=== PATIENT | female | born 1955 | race Caucasian/White ===

== ENCOUNTER → 2019-11-27 09:23 | Outpatient (CLI) | payer OTHER, SELFPAY ==
--- NOTE | ~2019-11-27 | DEXA_ITS ---
Bone Density Report Name: Lelo Hdez Age: 64 Sex: Female Ethnicity: White Date of : 1955 Indication: postmenopausal; screening for osteoporosis; height loss; Referring Provider: LIBORIO LINDSAY Study: Bone densitometry was performed. Exam Date: November 27, 2019 Accession number: [id number] Bone Density: Region BMD T-score Z-score Classification AP Spine (L1-L4) 1.048 0.0 1.9 Normal Femoral Neck (Left) 0.697 -1.4 0.2 Osteopenia Total Hip (Left) 0.850 -0.8 0.5 Normal Femoral Neck (Right) 0.731 -1.1 0.5 Osteopenia Total Hip (Right) 0.943 0.0 1.3 Normal Total Hip Mean 0.897 -0.4 0.9 Normal World Health Organization criteria for BMD impression classify patients as: Normal (T-score at or above -1.0), Osteopenia (T-score between -1.0 and -2.5), or Osteoporosis (T-score at or below -2.5). 10-year Fracture Risk(1): Major Osteoporotic Fracture 8.6% Hip Fracture 0.8% Reported Risk Factors: [place] (), Neck BMD=0.697, BMI=28.3 (1) FRAX(R) Version 3.08. Fracture probability calculated for an untreated patient. Fracture probability may be lower if the patient has received treatment. Previous Exams: Region Exam Age BMD T-score BMD Change BMD Change Date g/cm2 vs Baseline vs Previous AP Spine(L1-L4) 11/27/2019 64 1.048 0.0 -0.046* 0.019 08/17/2016 60 1.029 -0.2 -0.065* -0.027* 05/30/2013 57 1.056 0.1 -0.038* -0.038* 12/27/2008 53 1.094 0.4 Total Hip(Left) 11/27/2019 64 0.850 -0.8 -0.077* -0.015 08/17/2016 60 0.865 -0.6 -0.063* 0.014 05/30/2013 57 0.851 -0.7 -0.076* -0.076* 12/27/2008 53 0.927 -0.1 Total Hip(Right) 11/27/2019 64 0.943 0.0 -0.039* -0.018 08/17/2016 60 0.961 0.2 -0.022 0.080* 05/30/2013 57 0.880 -0.5 -0.102* -0.102* 12/27/2008 53 0.982 0.3 *Denotes significance at 95% confidence level, LSC for AP Spine = 0.022 g/cm2, LSC for Total Hip = 0.027 g/cm2 Clinical Information Provided by Patient: Has used the following medications: Vitamin D, Calcium Patient maximum height was 63 Menopause Age: 53 No regular weight bearing exercise Drinks caffeinated beverages Onset of menses at age 9 Number of children 1 Impression: The patient has low bone mass, based on the Left Femoral Neck T-scor
== END ==
PROVIDERS: Visit Provider Obstetrics & Gynecology Gynecology
DX: M85.89 Other specified disorders of bone density and structure, multiple sites (principal); Z78.0 Asymptomatic menopausal state
CPT/HCPCS: 77080

== ENCOUNTER → 2020-08-04 13:34 | Outpatient (CLI) | payer OTHER, SELFPAY ==
--- NOTE | ~2020-08-04 | MM_ITS ---
EXAMINATION: MM screening sulaiman BI w jaylyn HISTORY: Screening TECHNIQUE: Craniocaudal and mediolateral oblique 3-D tomosynthesis images were obtained and synthetic 2-D images were generated. CAD analysis was submitted and interpreted. COMPARISON: Comparison to multiple prior studies sequentially, with oldest reviewed study dated 05/31. BREAST PARENCHYMAL COMPOSITION: There are scattered areas of fibroglandular density. FINDINGS: There is no evidence of suspicious mass, calcification, or architectural distortion to sugg est malignancy in either breast. There has been no suspicious interval change. IMPRESSION: 1. No mammographic evidence of malignancy. 2. Recommend routine screening mammography in one year. BI-RADS Category 1: Negative Reviewed, dictated and finalized at location A. ILS WASHER
== END ==
PROVIDERS: PCP Nurse Practitioner Psychiatric/Mental Health; Visit Provider Nurse Practitioner
DX: Z12.31 Encounter for screening mammogram for malignant neoplasm of breast (principal)
CPT/HCPCS: 77063; 77067

== ENCOUNTER → 2020-10-28 09:05 | Outpatient (CLI) | payer OTHER, SELFPAY ==
--- NOTE | ~2020-10-28 | US_ITS ---
EXAMINATION: US pelvic complete w TV DATE: 10/28/2020 09:53 INDICATION: Right adnexal mass TECHNIQUE: Multiple transabdominal and endovaginal sonographic images of the pelvis were obtained. COMPARISON: None. FINDINGS: The uterus measures 8.4 x 5.8 x 6.4 cm. The visual is portions of the endometrial complex at the low er uterine segment measures 5 mm in thickness. The more cephalad endometrial complex is obscured by a 4.6 cm hyperechoic and shadowing mass at the fundus most likely representing a uterine fibroid. Ther e are a couple additional smaller regions with more dense shadowing coarse calcifications measuring 2 .4 cm and 1.4 cm in maximal diameters likely representing degenerated uterine fibroids. 4.1 cm simple appearing anechoic cystic lesion at the right adnexa. No definitive right ovarian tissue identified. The left ovary is not visualized. There is no free fluid in the pelvis. IMPRESSION: 1. 4.6 cm uterine mass most likely representing a fibroid with couple smaller calcified likely degene rated uterine fibroids. 2. Simple appearing 4.1 cm right adnexal cyst. Bilateral ovaries are not visualized. Reviewed, dictated and finalized at location B. [employer] IMPRESSION: 1. 4.6 cm uterine mass most likely representing a fibroid with couple smaller c alcified likely degenerated uterine fibroids. 2. Simple appearing 4.1 cm right adnexal cyst. Bilateral ovaries are not visual ized.
== END ==
PROVIDERS: PCP Nurse Practitioner Psychiatric/Mental Health; Visit Provider Nurse Practitioner
DX: R19.09 Other intra-abdominal and pelvic swelling, mass and lump (principal); N85.9 Noninflammatory disorder of uterus, unspecified; D25.9 Leiomyoma of uterus, unspecified
CPT/HCPCS: 76830; 76856

== ENCOUNTER → 2020-11-08 00:40 | Outpatient (CLI) | payer OTHER, SELFPAY ==
[2020-11-09 00:21] LABS: SARS-CoV-2 RNA PCR Negative
== END ==
PROVIDERS: PCP Nurse Practitioner Psychiatric/Mental Health; Visit Provider Internal Medicine Gastroenterology
DX: Z01.812 Encounter for preprocedural laboratory examination (principal); Z20.822 Contact with and (suspected) exposure to COVID-19
CPT/HCPCS: C9803; U0003; U0005

== ENCOUNTER 2020-11-11 01:36 | Day surgery (SDC) | payer OTHER, SELFPAY ==
[2020-10-31 12:03] VITALS: BMI 27.3
[2020-11-11 11:38] VITALS: BP 139/74; PULSE 74; RESP 16; TEMP 37; O2SAT 98
[2020-11-11] MEDS: LACTATED RINGERS 1,000 ML 150 ML IV CONT (11:48)
--- NOTE | 2020-11-11 11:52 | WPDANESEPPF ---
Anes - Initial Pre Proc Eval Procedure: Operation Date: 11/11/20 12:30 Proposed Procedures p Colonoscopy - Srinivas Garcia MD Date/Time: 11/11/20 11:52 Surgeon: Srinivas Garcia MD Pre Op Diagnosis: Rectal Bleeding Patient Data Age: 65 Gender: F Height: 5 ft 2 in Weight: 67.1 kg Last Vital Signs Temp 37.0 C 11/11/20 11:38 Pulse 74 11/11/20 11:38 Resp 16 11/11/20 11:38 BP 139/74 11/11/20 11:38 Pulse Ox 98 11/11/20 11:38 Allergies Allergy/AdvReac Type Severity Reaction Status Date / Time ramipril Allergy Severe Cough Verified 11/11/20 11:36 Home Medications Medication Instructions Recorded Confirmed Type Calcium 500 + D (D3) 1 tab-cap PO DAILY 10/31/20 11/11/20 History aspirin [Adult Low Dose Aspirin] 81 mg PO DAILY 10/31/20 11/11/20 History cholecalciferol (vitamin D3) 50 mcg PO DAILY 10/31/20 11/11/20 History [Vitamin D3] famotidine 20 mg PO HS 10/31/20 11/11/20 History loratadine [Claritin] 10 mg PO DAILY 10/31/20 11/11/20 History meloxicam 7.5 mg PO DAILY 10/31/20 11/11/20 History omeprazole 20 mg PO QAM 10/31/20 11/11/20 History sertraline 50 mg PO DAILY 10/31/20 11/11/20 History triamterene-hydrochlorothiazid 1 tablet PO DAILY 10/31/20 11/11/20 History Patient hx anesthesia problems: none Family hx anesthesia problems: none [facility] Past Medical History Medical History (Updated 11/11/20 @ 11:53 by Dario Trevino MD) HTN (hypertension) Hyperlipidemia Social History Social History Smoking status: Never smoker Alcohol intake: current Drinks per week: 3 Alcohol use details: WINE Substance use: never Substance use type: does not use Living arrangements: with family Spiritual care concerns: No Anes - Eval Final PreProcedure Day of Procedure 02/09/21 11:52 Patient weight: normal Heart: regular rate and rhythm Lungs: clear to auscultation Airway: Mallampati scale class II Neurological: alert and oriented Last oral intake: >/= 8 hours ASA classification: II Emergent: no Anesthetic plan: proceed Anesthesia type and monitoring: general GIVS and standard monitoring Informed Consent: The patient's anesthetic plan and its attendant risks and benefits were discussed with the patient/family/POA. Questions were solicited and answers provided to the satisfaction of the patient/family/POA.
--- NOTE | 2020-11-11 12:40 | PM.HPGS ---
History of Present Illness History of Present Illness Consent: Risks, benefits, and alternatives have been discussed and questions answered. Patient agrees to proceed with procedure. Chief complaint: Rectal Bleeding Narrative: Lelo Hdez is a 65 year old female here for screening colonoscopy, last one 2014 Review of Systems Constitutional: Constitutional: Denies headache(s) and Denies weakness Eyes: Eyes: Denies blurry vision ENT: Reports Normal hearing present, Denies headache(s) and Denies neck pain Cardiovascular: Cardiovascular: Denies chest pain and Denies dyspnea Respiratory: Respiratory: Denies dyspnea Gastrointestinal: Gastrointestinal: Reports no additional gastrointestinal complaints Genitourinary: Genitourinary: Denies dysuria Musculoskeletal: Musculoskeletal: Denies neck pain Integumentary/Breasts: Skin/Breast: Denies dry skin Neurologic: Reports Normal hearing present, Denies headache(s) and Denies weakness Psychiatric: Psychiatric: Denies anxiety Endocrine: Endocrine: Denies change in body appearance Hematologic/Lymphatic: Hematologic/Lymphatic: Denies easy bleeding Allergic/Immunologic: Allergic/Immunologic: Denies urticaria PMFSH Past Medical History Medical History (Updated 11/11/20 @ 12:40 by Srinivas Garcia MD) Colon cancer screening HTN (hypertension) Hyperlipidemia Social History Social History Smoking status: Never smoker Alcohol intake: current Drinks per week: 3 Alcohol use details: WINE Substance use: never Substance use type: does not use Living arrangements: with family Spiritual care concerns: No Meds Home Medications and Allergies Home Medications Medication Instructions Recorded Confirmed Type Calcium 500 + D (D3) 1 tab-cap PO DAILY 10/31/20 11/11/20 History aspirin [Adult Low Dose Aspirin] 81 mg PO DAILY 10/31/20 11/11/20 History cholecalciferol (vitamin D3) 50 mcg PO DAILY 10/31/20 11/11/20 History [Vitamin D3] famotidine 20 mg PO HS 10/31/20 11/11/20 History loratadine [Claritin] 10 mg PO DAILY 10/31/20 11/11/20 History meloxicam 7.5 mg PO DAILY 10/31/20 11/11/20 History omeprazole 20 mg PO QAM 10/31/20 11/11/20 History sertraline 50 mg PO DAILY 10/31/20 11/11/20 History triamterene-hydrochlorothiazid 1 tablet PO DAILY 10/31/20 11/11/20 History Allergies Allergy/AdvReac Type Severity Reaction Status Date / Time ramipril Allergy Severe Cough Verified 11/11/20 11:36 Vital Signs Vital Signs - 24 hr 11/11/20 11:38 Temperature 98.6 F Pulse Rate 74 Respiratory Rate 16 Blood Pressure 139/74 Pulse Oximetry 98 Exam Const: General: comfortable and no acute distress HENMT: General nose exam: Normal nares present Eyes: General: appearance normal, both eyes and all related structures Neck: Neck: no JVD Resp: Auscultation: clear to auscultation bilaterally Cardio: Rate: regular rate Rhythm: regular rhythm GI: Inspection: non-distended GI Palp: Yes Soft to palpation Skin: General skin exam: normal color Neuro: General: gait normal Speech: normal speech Extrem: General: normal to inspection Psych: Mental Status: mental status grossly normal Assessment and Plan Assessment and plan (1) Colon cancer screening: Code(s): Z12.11 - Encounter for screening for malignant neoplasm of colon Status: Acute Assessment and Plan: proceed with colonoscopy
[2020-11-11 13:02] VITALS: BP 96/42; PULSE 76; RESP 21; O2SAT 98
[2020-11-11 13:12] VITALS: BP 124/62; PULSE 67; RESP 21; O2SAT 96
[2020-11-11 13:22] VITALS: BP 124/71; PULSE 63; RESP 17; O2SAT 96
== END 2020-11-11 13:34 | disposition home or self-care (01) ==
PROVIDERS: PCP Nurse Practitioner Psychiatric/Mental Health; Visit Provider Internal Medicine Gastroenterology
PROC: 0DJD8ZZ Inspection of Lower Intestinal Tract, Via Natural or Artificial Opening Endoscopic (ICD-10-PCS; CPT 45378; principal; 2020-11-11 12:30)
DX: Z12.11 Encounter for screening for malignant neoplasm of colon (principal); D12.0 Benign neoplasm of cecum
CPT/HCPCS: 45380; 88305; C9803; J2704; J7120; U0003; U0005

== ENCOUNTER → 2021-03-12 07:37 | Outpatient (CLI) | payer OTHER, SELFPAY ==
--- NOTE | ~2021-03-12 | MM_ITS ---
.... EXAMINATION: MM diagnostic sulaiman RT w jaylyn HISTORY: Right axillary lump after Covid vaccination, subsequently resolved TECHNIQUE: ML, MLO and craniocaudal 3-D tomosynthesis images of the right breast were performed and s ynthetic 2-D images were generated. CAD analysis was submitted and interpreted. COMPARISON: 08/04/2020, 01/11/2019, 10/25/2017, 08/17/2016bilateral digital screening mammogram examinat ions BREAST PARENCHYMAL COMPOSITION: The breasts are almost entirely fatty. FINDINGS: No suspicious mass or architectural distortion, malignant calcification, skin thickening or retraction or significant new or developing density is detected. IMPRESSION: 1. No mammographic evidence of malignancy 2. Routine mammographic screening is recommended BI-RADS Category 1: Negative Reviewed, dictated and finalized at location A.
--- NOTE | ~2021-03-12 | US_ITS ---
EXAMINATION: US pelvic complete DATE: 03/12/2021 15:53 INDICATION: Follow-up uterine fibroid Comparison:Ultrasound dated 10/28/2020 TECHNIQUE: Multiple transabdominal sonographic images of the pelvis performed. FINDINGS: The uterus measures 9.2 x 5.4 x 6.5 cm. The endometrial complex is not well delineated due to a large hyperechoic mass. This mass measures 5.5 x 4.6 x 4.7 cm, compatible with a fibroid. There is a right adnexal cyst measuring 3.7 cm. Ovaries not definitively identified. No free fluid. IMPRESSION: 1. Slightly increased size of hyperechoic uterine mass measuring 5.5 cm maximum dimension, most likel y fibroid. 2: Decreased size of right adnexal simple cyst measuring 3.7 cm. Reviewed, dictated and finalized at location A. IMPRESSION: 1. Slightly increased size of hyperechoic uterine mass measuring 5.5 cm maximum dimension, most likely fibroid. 2: Decreased size of right adnexal simple cyst measuring 3.7 cm.
== END ==
PROVIDERS: Visit Provider Obstetrics & Gynecology Gynecology
DX: N63.10 Unspecified lump in the right breast, unspecified quadrant (principal); D25.9 Leiomyoma of uterus, unspecified; N85.8 Other specified noninflammatory disorders of uterus
CPT/HCPCS: 76856; 77061; 77065; G0279

== ENCOUNTER → 2021-06-30 11:28 | Outpatient (CLI) | payer OTHER, SELFPAY ==
--- NOTE | ~2021-06-30 | US_ITS ---
EXAMINATION: US pelvic complete DATE: 06/30/2021 11:47 INDICATION: Right ovarian cyst in a postmenopausal patient TECHNIQUE: Multiple transabdominal and endovaginal sonographic images of the pelvis were obtained. COMPARISON: 03/12/2021 FINDINGS: The uterus measures 9.9 x 4.8 x 6.3 cm. Again seen is a 4.6 cm hyperechoic mass at the uter ine fundus which is not significantly changed, most likely a fibroid. Mass effect from the fundal mas s prevents measurement of the endometrial complex. The left ovary is not visualized however no left a dnexal abnormality is seen. The right ovary measures 5.4 x 3.5 x 3.6 cm and contains a 3 cm cyst whic h is decreased in size since the prior examination. There is normal vascular flow in the right ovary. There is no free fluid in the pelvis. IMPRESSION: 1. Right adnexal cyst with interval decrease in size. Annual sonographic follow-up is recommended. 2. Stable uterine mass, most likely uterine fibroid. Reviewed, dictated and finalized at location A. IMPRESSION: 1. Right adnexal cyst with interval decrease in size. Annual sonographic follow -up is recommended. 2. Stable uterine mass, most likely uterine fibroid.
== END ==
PROVIDERS: Visit Provider Nurse Practitioner
DX: N83.201 Unspecified ovarian cyst, right side (principal); N85.9 Noninflammatory disorder of uterus, unspecified
CPT/HCPCS: 76856

== ENCOUNTER → 2022-01-07 13:02 | Outpatient (CLI) | payer OTHER, SELFPAY ==
--- NOTE | ~2022-01-07 | DEXA_ITS ---
Bone Density Report Name: MIRNA SMITH Age: 66 Sex: Female Ethnicity: White Date of : 1955 Indication: postmenopausal; screening for osteoporosis; height loss; prior fracture; Referring Provider: Arlette, Dolores Study: Bone densitometry was performed. Exam Date: January 07, 2022 Accession number: [id number] Bone Density: Region BMD T-score Z-score Classification AP Spine (L1-L4) 1.054 0.1 2.1 Normal Femoral Neck (Left) 0.661 -1.7 0.0 Osteopenia Total Hip (Left) 0.859 -0.7 0.7 Normal Femoral Neck (Right) 0.734 -1.0 0.7 Normal Total Hip (Right) 0.940 0.0 1.4 Normal Total Hip Mean 0.900 -0.4 1.1 Normal World Health Organization criteria for BMD impression classify patients as: Normal (T-score at or above -1.0), Osteopenia (T-score between -1.0 and -2.5), or Osteoporosis (T-score at or below -2.5). 10-year Fracture Risk(1): Major Osteoporotic Fracture 16% Hip Fracture 2.1% Reported Risk Factors: [place] (), Neck BMD=0.661, BMI=28.1, previous fracture (1) FRAX(R) Version 3.08. Fracture probability calculated for an untreated patient. Fracture probability may be lower if the patient has received treatment. Previous Exams: Region Exam Age BMD T-score BMD Change BMD Change Date g/cm2 vs Baseline vs Previous AP Spine(L1-L4) 01/07/2022 66 1.054 0.1 -0.040* 0.006 11/27/2019 64 1.048 0.0 -0.046* 0.019 08/17/2016 60 1.029 -0.2 -0.065* -0.027* 05/30/2013 57 1.056 0.1 -0.038* -0.038* 12/27/2008 53 1.094 0.4 Total Hip(Left) 01/07/2022 66 0.859 -0.7 -0.069* 0.009 11/27/2019 64 0.850 -0.8 -0.077* -0.015 08/17/2016 60 0.865 -0.6 -0.063* 0.014 05/30/2013 57 0.851 -0.7 -0.076* -0.076* 12/27/2008 53 0.927 -0.1 Total Hip(Right) 01/07/2022 66 0.940 0.0 -0.042* -0.003 11/27/2019 64 0.943 0.0 -0.039* -0.018 08/17/2016 60 0.961 0.2 -0.022 0.080* 05/30/2013 57 0.880 -0.5 -0.102* -0.102* 12/27/2008 53 0.982 0.3 *Denotes significance at 95% confidence level, LSC for AP Spine = 0.022 g/cm2, LSC for Total Hip = 0.027 g/cm2 Clinical Information Provided by Patient: Has had a low trauma fracture Has used the following medications: Vitamin D, Calcium Patient maximum height was 63 Menopause Age: 53 No regular we
== END ==
PROVIDERS: Visit Provider Nurse Practitioner
DX: M85.88 Other specified disorders of bone density and structure, other site (principal)
CPT/HCPCS: 77080

== ENCOUNTER → 2022-01-26 07:07 | Outpatient (CLI) | payer OTHER, SELFPAY ==
--- NOTE | ~2022-01-26 | MM_ITS ---
EXAMINATION: MM screening sulaiman BI w jaylyn HISTORY: Screening TECHNIQUE: Craniocaudal and mediolateral oblique 3-D tomosynthesis images were obtained and synthetic 2-D images were generated. CAD analysis was submitted and interpreted. COMPARISON: Comparison to multiple prior studies sequentially, with oldest reviewed study dated 04/2015. BREAST PARENCHYMAL COMPOSITION: The breasts are almost entirely fatty. FINDINGS: There is no evidence of suspicious mass, calcification, or architectural distortion to sugg est malignancy in either breast. There has been no suspicious interval change. IMPRESSION: 1. No mammographic evidence of malignancy. 2. Recommend routine screening mammography in one year. BI-RADS Category 1: Negative Reviewed, dictated and finalized at location A.
== END ==
PROVIDERS: PCP Registered Nurse; Visit Provider Nurse Practitioner
DX: Z12.31 Encounter for screening mammogram for malignant neoplasm of breast (principal)
CPT/HCPCS: 77063; 77067

== ENCOUNTER → 2022-07-20 15:20 | Outpatient (CLI) | payer OTHER, SELFPAY ==
--- NOTE | ~2022-07-20 | US_ITS ---
EXAMINATION: US pelvic complete DATE: 07/20/2022 15:44 INDICATION: Right ovarian cyst TECHNIQUE: Multiple transabdominal and endovaginal sonographic images of the pelvis were obtained. COMPARISON: 06/30/2021 FINDINGS: The uterus measures 9.1 x 5 x 6.7 cm. There is an unchanged 4.5 cm hyperechoic mass of the uterine fundus which obscures visualization of the endometrial complex. The right ovary measures 3.9 x 2.9 x 4 cm and contains a 2.9 cm cyst which is slightly decreased in size since the comparison exam ination. The left ovary measures 1.6 x 1.4 x 1.7 cm. There is normal vascular flow in the ovaries. Th ere is no free fluid in the pelvis. IMPRESSION: 1. Right ovarian cyst with decrease in size, now measuring 2.9 cm, requiring no further follow-up. 2. Stable uterine mass, probable fibroid. Reviewed, dictated and finalized at location A.
== END ==
PROVIDERS: PCP Registered Nurse; Visit Provider Nurse Practitioner
DX: N83.201 Unspecified ovarian cyst, right side (principal); N85.8 Other specified noninflammatory disorders of uterus
CPT/HCPCS: 76856

== ENCOUNTER → 2023-04-09 07:40 | Outpatient (CLI) | payer OTHER, SELFPAY ==
--- NOTE | ~2023-04-09 | MM_ITS ---
EXAMINATION: MM screening [facility] BI w jaylyn HISTORY: Screening mammogram TECHNIQUE: Craniocaudal and mediolateral oblique 3-D tomosynthesis images were obtained and synthetic 2-D images were generated. CAD analysis was submitted and interpreted. COMPARISON: 01/26/2022, 03/12/2021, 08/04/2020 BREAST PARENCHYMAL COMPOSITION: The breasts are almost entirely fatty. FINDINGS: No suspicious mass, calcification, or architectural distortion are identified in either norris ast to suggest malignancy. There has been no suspicious interval change. IMPRESSION: 1. No mammographic evidence of malignancy. 2. Recommend routine screening mammography in one year. BI-RADS Category 1: Negative Reviewed, dictated and finalized at location B.
== END ==
PROVIDERS: PCP Obstetrics & Gynecology Gynecology; Visit Provider Nurse Practitioner
DX: Z12.31 Encounter for screening mammogram for malignant neoplasm of breast (principal)
CPT/HCPCS: 77063; 77067

== ENCOUNTER 2024-01-12 13:24 | Outpatient (CLI) | payer MEDICARE, OTHER, SELFPAY ==
--- NOTE | 2024-01-12 13:33 | ECG_ITS ---
SEE SCANNED COPY FOR CONFIRMED REPORT MTDD
[2024-01-12 14:18] LABS: Anion Gap 5 mmol/L (4-12); Blood Urea Nitrogen 24 mg/dL (7-17); Calcium 9.6 mg/dL (8.4-10.2); Carbon Dioxide 32 mmol/L (22-30); Chloride 100 mmol/L (98-107); Estimated Glomerular Filt Rate > 60; Glucose 96 mg/dL (65-110); Sodium 137 mmol/L (137-145)
[2024-01-12 14:19] LABS: INR 0.9; Prothrombin Time 12.6 Seconds (11.1-14.7)
[2024-01-12 14:20] LABS: Partial Thromboplastin Time 26.8 Seconds (22.3-36.8)
== END 2024-01-12 13:25 | disposition home or self-care (01) ==
PROVIDERS: Anesthesiology; Visit Provider Urology
DX: Z01.818 Encounter for other preprocedural examination (principal); N20.0 Calculus of kidney; I10 Essential (primary) hypertension
CPT/HCPCS: 36415; 80048; 85610; 85730; 87086; 93005

== ENCOUNTER 2024-01-20 00:03 | Day surgery (SDC) | payer MEDICARE, OTHER, SELFPAY ==
--- NOTE | 2024-01-09 14:37 | PC.NURSE ---
Report to the Outpatient Waiting Room, entrance under the green pavilion located off [facility], at time __0600 on date __01/20/24 . Planned Procedure Time: __0730 . Time changes happen often and if your time is changed the preop area will call you the afternoon before. - You and your visitor will be asked to self-screen and do not enter if you have any COVID symptoms. - A mask is optional within the hospital at this time. Patients may have clear liquids (water, carbonated beverages, clear teas, apple juice) until 3 hours prior to surgery( 4:30AM) with a maximum of 20 ounces. - No food from midnight until time of surgery - Infants may have breast milk until 4 hours before surgery, infant formula 6 hours prior to surgery. - Children will be allowed to drink immediately following surgery. If applicable, please bring a bottle or sippy cup to assist with drinking. Juice, water, soda, and popsicles are readily available. For infants on formula, please bring formula the day of surgery. Pacifiers are allowed. Take the following medications with a SIP of water the morning of surgery: __NONE DO NOT STOP ANY OF YOUR OTHER PRESCRIPTION MEDICATIONS PRIOR TO SURGERY ?EXCEPT THE FOLLOWING Medications to discontinue per physician ____ASPIRIN AND MELOXICAM PER DR TANNER . ALL VITAMINS AND SUPPLEMENTS 3 DAYS PRE OP. LAST DOSE 01/16/24 Please no make-up, nail chinese, hairspray, perfume, deodorant, or body powder the day of surgery. No jewelry (including any body piercings) or valuables the day of surgery, leave them at home. Please take a shower or bath the night before, or the morning of, surgery with an antibacterial soap. Wear comfortable, loose fitting clothing. Children are encouraged to wear pajamas. - Jewelry must be removed prior to entering the operating room. Rings and piercings that are not removed may be cut off. - The hospital will not accept responsibility for valuables. - Please leave all valuables, including medications, at home the day of surgery. If you are going home after surgery, a licensed cab driver must drive you home. - NO public transportation without another adult if you receive anesthesia. - We recommend that an adult stay with you for 24 hours following discharge. - We also recommend that you do not drive, make important decision, drink alcoholic beverages, or take any drugs that were not prescribed by your health care provider for at least 24 hours after your discharge time. Follow any additional instructions given to you from your surgeon. If you or anyone in your household have experienced Covid symptoms in the past week, please notify your surgeon or the nurse liaison at the phone number below for possible testing. Telephone instructions given to __PATIENT and asked if any additional questions and then verbalized understanding. Patient advised to call surgeon office or pre surgery nurse liaison [phone] if any additional questions.
[2024-01-09 14:50] VITALS: BMI 26.5
--- NOTE | 2024-01-17 07:27 | P.HP_ITS ---
History of Present Illness History of Present Illness Consent: Risks, benefits, and alternatives have been discussed and questions answered. Patient agrees to proceed with procedure. Chief complaint: Nirav Kidney Stones Narrative: pleasant 68-year-old female who was undergoing evaluation for cholecystitis several months ago when imaging demonstrated bilateral kidney stones, measuring up to 12 mm and 9 mm in her left kidney. After discussion of options she is e lected for cystoscopy with left stent placement and left ESWL. She is aware that this may require several procedures. She is aware of the potential complications including, but not limited to, postoperative hematuria and perinephric hematoma Review of Systems Review of Systems: All systems reviewed & are unremarkable except as noted in HPI and below PMFSH Past Medical History Medical History (Updated 01/17/24 @ 07:30 by Jf Tadeo MD) Colon cancer screening HTN (hypertension) Hyperlipidemia Social History Social History Smoking status: Never smoker Alcohol intake: current Drinks per week: 2 Alcohol use details: WINE Substance use: never Substance use type: does not use Living arrangements: with family Spiritual care concerns: No Meds Home Medications and Allergies Home Medications Medication Instructions Recorded Confirmed Type Calcium 500 + D (D3) 1 tab-cap PO QPM 10/31/20 01/09/24 History aspirin 81 mg tablet 81 mg PO QPM 10/31/20 01/09/24 History cholecalciferol (vitamin D3) 50 50 mcg PO QPM 10/31/20 01/09/24 History mcg (2,000 unit) capsule (Vitamin D3) loratadine 10 mg tablet (Claritin) 10 mg PO QPM 10/31/20 01/09/24 History omeprazole 20 mg capsule,delayed 20 mg PO QPM 10/31/20 01/09/24 History release sertraline 50 mg tablet 50 mg PO QPM 10/31/20 01/09/24 History triamterene 37.5 1 tablet PO QPM 10/31/20 01/09/24 History mg-hydrochlorothiazide 25 mg tablet latanoprost 0.005 % eye drops 1 drp EACH EYE HS 01/09/24 01/09/24 History losartan 25 mg tablet 12.5 mg PO QPM 01/09/24 01/09/24 History meloxicam 15 mg tablet 15 mg PO QPM 01/09/24 01/09/24 History ondansetron 4 mg disintegrating 4 mg PO TID NAUSEA 01/09/24 01/09/24 History tablet Allergies Allergy/AdvReac Type Severity Reaction Status Date / Time ramipril Allergy Severe Cough Verified 01/09/24 14:23 Exam Const: General: no acute distress Resp: Effort & Inspection: normal respiratory effort GI: Inspection: non-distended GI Palp: No abdominal tenderness and No Guarding due to palpation present (GI) Auscultation: normal bowel sounds Assessment and Plan Assessment and plan (1) Bilateral kidney stones: Code(s): N20.0 - Calculus of kidney Status: Acute Assessment and Plan: * cystoscopy, left stent placement and left ESWL
[2024-01-20] VITALS (8 sets, daily range): BP systolic 136–192; BP diastolic 64–94; PULSE 69–76; RESP 12–16; TEMP 36.2; O2SAT 95–100
--- NOTE | ~2024-01-20 | XR_ITS ---
Supine and upright views of the abdomen Clinical history: Lithotripsy Findings: Bowel gas pattern is nonspecific. No evidence for obstruction or free air. There is a 15 mm ovoid left renal stone. There is a smaller 4 mm left lower pole renal stone. Osseous structures are intact. Impression: Left nephrolithiasis, as above. Reviewed, dictated and finalized at [facility]. Impression: Left nephrolithiasis, as above.
--- NOTE | 2024-01-20 06:11 | WPDHPUPDATE1 ---
History and Physical Update Update Date/Time: 01/20/24 06:11 History and Physical has been reviewed, including an updated exam of the patient. There are NO changes in the patient's condition. Risks, benefits, and alternatives have been discussed and questions answered. Patient agrees to proceed with procedure.
[2024-01-20] MEDS: LACTATED RINGERS 1,000 ML 30 ML IV CONT (06:30)
--- NOTE | 2024-01-20 06:55 | P.PNAN_ITS ---
Anes - Initial Pre Proc Eval Procedure: Operation Date: 01/20/24 07:30 Proposed Procedures p Left Extracorporeal Shock Wave Lithotripsy - Jf Tadeo MD s Cystoscopy with Left Stent Placement - Jf Tadeo MD Date/Time: 01/20/24 06:55 Surgeon: Jf Tadeo MD Pre Op Diagnosis: Nirav Kidney Stones Patient Data Age: 68 Gender: F Height: 1.57 m Weight: 65.77 kg Allergies Allergy/AdvReac Type Severity Reaction Status Date / Time ramipril Allergy Severe Cough Verified 01/09/24 14:23 Home Medications Medication Instructions Recorded Confirmed Type Calcium 500 + D (D3) 1 tab-cap PO QPM 10/31/20 01/09/24 History aspirin 81 mg tablet 81 mg PO QPM 10/31/20 01/09/24 History cholecalciferol (vitamin D3) 50 50 mcg PO QPM 10/31/20 01/09/24 History mcg (2,000 unit) capsule (Vitamin D3) loratadine 10 mg tablet (Claritin) 10 mg PO QPM 10/31/20 01/09/24 History omeprazole 20 mg capsule,delayed 20 mg PO QPM 10/31/20 01/09/24 History release sertraline 50 mg tablet 50 mg PO QPM 10/31/20 01/09/24 History triamterene 37.5 1 tablet PO QPM 10/31/20 01/09/24 History mg-hydrochlorothiazide 25 mg tablet latanoprost 0.005 % eye drops 1 drp EACH EYE HS 01/09/24 01/09/24 History losartan 25 mg tablet 12.5 mg PO QPM 01/09/24 01/09/24 History meloxicam 15 mg tablet 15 mg PO QPM 01/09/24 01/09/24 History ondansetron 4 mg disintegrating 4 mg PO TID NAUSEA 01/09/24 01/09/24 History tablet Patient hx anesthesia problems: post op nausea/vomiting Family hx anesthesia problems: none Results Review: All pre-operative results and documents have been reviewed as part of the pre- operative evaluation. [facility] Past Medical History Medical History Colon cancer screening HTN (hypertension) Hyperlipidemia Social History Social History Smoking status: Never smoker Alcohol intake: current Drinks per week: 2 Alcohol use details: WINE Substance use: never Substance use type: does not use Living arrangements: with family Spiritual care concerns: No Anes - Eval Final PreProcedure Day of Procedure 01/20/24 06:55 Patient weight: normal Heart: regular rate and rhythm Lungs: clear to auscultation Airway: Mallampati scale Neurological: alert and oriented Last oral intake: >/= 8 hours ASA classification: II Emergent: no Anesthetic plan: proceed Anesthesia type and monitoring: general LMA and standard monitoring Results Review: All pre-operative results and documents have been reviewed as part of the pre-op erative evaluation. Informed Consent: The patient's anesthetic plan and its attendant risks and benefits were discussed with the patient/family/POA. Questions were solicited and answers provided to the satisfaction of the patient/family/POA.
[2024-01-20] MEDS: ceFAZolin 2 GM/D5W 50 ML 2 GM/50 ML BAG IVPB (07:28)
--- NOTE | 2024-01-20 07:54 | P.OP_ITS ---
Procedure Note - Detailed Date of Procedure 01/20/24 Pre-op Diagnosis Nirav Kidney Stones Post-op Diagnosis Same Procedure Performed Cystoscopy, left ureteral stent placement, left ESWL Surgeon Jf Tadeo MD Anesthesia General Description of Procedure The patient was brought to the operative suite where she was placed in the frog- legged position on the Dornier lithotripter table. Flexible cystoscopy was undertaken with a 16F flexible cystoscopy. Her urethra and bladder neck were endoscopically normal. The bladder mucosa was normal and there was a single, orthotopic ureteral orifice bilaterally. A 0.035 glidewire was advanced into the left renal pelvis under fluoroscopy. A 4.8F J-J ureteral stent was positioned with the proximal coil in the renal pelvis and the distal coil in the bladder. The patient was then repositioned in the supine position and the focal point of the lithotriptor was placed in an 8-9 mm left renal calculus. It fractured early enough fragments fell in the lower pole calices were treated a 2nd smaller stone collectively. A total of 2500 shocks were delivered at a power setting of 4. There appeared to be good fragmentation of the stone. The patient tolerated the procedure well and was taken to the recovery room in good condition. Drains No Packing No Pathology None sent Complications No immediate complications Condition Stable Disposition PACU
== END 2024-01-20 10:08 | disposition home or self-care (01) ==
PROVIDERS: Visit Provider Urology
PROC: (CPT 50590; principal; 2024-01-20 07:30)
PROC: (CPT 52352; 2024-01-20 07:30)
DX: N20.0 Calculus of kidney (principal); I10 Essential (primary) hypertension; E78.5 Hyperlipidemia, unspecified; Z79.82 Long term (current) use of aspirin
CPT/HCPCS: 52332; 50590; 74018; C1769; C2617; J0690; J1100; J2405; J2704; J3010; J7120

== ENCOUNTER 2024-01-31 12:09 | Outpatient (CLI) | payer MEDICARE, OTHER, SELFPAY ==
--- NOTE | ~2024-01-31 | XR_ITS ---
Supine and upright views of the abdomen Clinical history: Renal stone COMPARISON: 01/20/2024 Findings: Bowel gas pattern is nonspecific. No evidence for obstruction or free air. No abnormal mass lesion or calcification is seen. Cholecystectomy clips are present. Coiled catheter projects overlyi ng the urinary bladder. Osseous structures are intact. Impression: No renal stone evident. Coiled catheter or possible ureteral stent coiled within the urinary bladder. Correlate clinically. Reviewed, dictated and finalized at location M. Impression: No renal stone evident. Coiled catheter or possible ureteral stent coiled within the urinary bladder. Bekah gates clinically.
== END 2024-01-31 12:10 ==
PROVIDERS: PCP Urology; Visit Provider Urology
DX: N20.0 Calculus of kidney (principal)
CPT/HCPCS: 74018

== ENCOUNTER 2024-06-28 12:47 | Outpatient (CLI) | payer MEDICARE, OTHER, SELFPAY ==
--- NOTE | ~2024-06-28 | MM_ITS ---
EXAMINATION: MM screening sulaiman BI w jaylyn HISTORY: Screening TECHNIQUE: Craniocaudal and mediolateral oblique 3-D tomosynthesis images were obtained and synthetic 2-D images were generated. CAD analysis was submitted and interpreted. COMPARISON: Comparison to multiple prior studies sequentially, with oldest reviewed study dated 01/11. BREAST PARENCHYMAL COMPOSITION: Not Dense: The breasts are almost entirely fatty. FINDINGS: There is no evidence of suspicious mass, calcification, or architectural distortion to sugg est malignancy in either breast. There has been no suspicious interval change. IMPRESSION: 1. No mammographic evidence of malignancy. 2. Recommend routine screening mammography in one year. BI-RADS Category 1: Negative Reviewed, dictated and finalized at location B.
== END 2024-06-28 12:48 | disposition home or self-care (01) ==
PROVIDERS: Visit Provider Nurse Practitioner Women's Health
DX: Z12.31 Encounter for screening mammogram for malignant neoplasm of breast (principal)
CPT/HCPCS: 77063; 77067

== ENCOUNTER 2025-01-09 11:43 | Outpatient (CLI) | payer MEDICARE, OTHER, SELFPAY ==
--- NOTE | ~2025-01-09 | DEXA_ITS ---
Bone Density Report Name: MIRNA SMITH Age: 69 Sex: Female Ethnicity: White Date of : 1955 Indication: postmenopausal; screening for osteoporosis; Referring Provider: TAIWO, JOSE Study: Bone densitometry was performed. Exam Date: January 09, 2025 Accession number: [id number] Bone Density: Region BMD T-score Z-score Classification AP Spine(L2, L3, L4) 1.139 0.5 2.8 Normal Femoral Neck (Left) 0.649 -1.8 0.1 Osteopenia Total Hip (Left) 0.899 -0.4 1.2 Normal Femoral Neck (Right) 0.678 -1.5 0.3 Osteopenia Total Hip (Right) 0.916 -0.2 1.4 Normal Femoral Neck Mean 0.664 -1.7 0.2 Osteopenia Total Hip Mean 0.908 -0.3 1.3 Normal World Health Organization criteria for BMD impression classify patients as: Normal (T-score at or above -1.0), Osteopenia (T-score between -1.0 and -2.5), or Osteoporosis (T-score at or below -2.5). 10-year Fracture Risk(1): Major Osteoporotic Fracture 11% Hip Fracture 1.9% Reported Risk Factors: [place] (), Neck BMD=0.649, BMI=28.8 (1) FRAX(R) Version 3.08. Fracture probability calculated for an untreated patient. Fracture probability may be lower if the patient has received treatment. Clinical Information Provided by Patient: Has used the following medications: Vitamin D, Calcium Patient maximum height was 62 Menopause Age: 48 Drinks caffeinated beverages Onset of menses at age 12 Number of children 1 Impression: The patient has low bone mass, based on the Left Femoral Neck T-score. Discussion: BONE DENSITY IS LOW AT ONE OR MORE SKELETAL SITES. This patient's lowest T-score is low at one or more skeletal sites. It meets the World Health Organization's (WHO) criteria for ?low bone mass? (T-score between -1.0 and -2.5). The patient's 10-year risk of fracture as calculated by FRAX is less than the threshold where pharmacological therapy is recommended by the National Osteoporosis Foundation (NOF). However, all treatment decisions require clinical judgment and consideration of individual patient factors, including patient preferences, comorbidities, previous drug use, risk factors not captured in the FRAX model (e.g., frailty, falls, vitamin D deficiency, increased bone turnover, interval significant decline in bone density) and possible under or overestimation of fracture risk by FRAX. The patient should follow a healthful lifestyle (good nutrition with adequate calcium and vitamin D, and appropriate weight-bearing exercise). Follow-Up: Consider repeating this study in 2 to 3 years to reassess this patient's status, or sooner if there is some new clinical indication. Reported by: SARTHAK on 01/09/2025 12:00:00 PM. Reviewed, dictated and finalized at location A.
--- OUTSIDE RECORDS SUMMARY | 2025-01-09 13:20 | XMS_ITS | Referral Summary ---
Author Organization [facility] [place] [address] Address [address] [place] [id number] Care Team Providers Care [employer] Name Role Phone Starla Lopez NP Primary Care Provider +1- [phone] Allergies Active Allergy Reactions Criticality Noted Date Comments Lisinopril Cough Low 05/15/2015 Medications triamterene-hyd roCHLOROthiazid e 37.5-25 mg per tablet 12/11/2021 Active sertraline (ZOLOFT) 50 mg tablet 10/08/2021 Active omeprazole (PriLOSEC) 20 mg capsule 10/15/2021 Active meloxicam (MOBIC) 7.5 mg tablet 12/11/2021 Active loratadine (CLARITIN) 10 mg tablet Take 1 tablet by mouth daily 02/24/2016 Active cholecalciferol (VITAMIN D-3) 4,000 unit capsule Take 1 capsule by mouth daily 01/11/2014 Active aspirin 81 mg enteric coated tablet Take 1 tablet by mouth daily Active Active Problems No known active problems Social History Tobacco Use Types Packs/Day Years Used Date Smoking Tobacco: Never Assessed Personal Safety Answer Date Recorded Getting School Help Needed Not on file 11/22 Comments Unknown Sex and Gender Information Value Date Recorded Sex Assigned at Not on file 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 Gender Identity Not on file Sexual Orientation Not on file Last Filed Vital Signs Vital Sign Reading Time Taken Comments Blood Pressure 161/80 12/12/2021 9:11 AM BULK GAS SPECIALIST Pulse 63 12/12/2021 9:11 AM BULK GAS SPECIALIST Temperature 37 C (98.6 F) 12/12/2021 9:11 AM BULK GAS SPECIALIST Respiratory Rate 16 12/12/2021 9:11 AM BULK GAS SPECIALIST Oxygen Saturation 98% 12/12/2021 9:11 AM BULK GAS SPECIALIST Inhaled Oxygen Concentration - - Weight 68 kg (150 lb) 12/12/2021 9:11 AM BULK GAS SPECIALIST Height 157.5 cm (5' 2 ) 12/12/2021 9:11 AM BULK GAS SPECIALIST Body Mass Index 27.44 12/12/2021 9:11 AM BULK GAS SPECIALIST Plan of Treatment Not on file Insurance [facility] CHOICE PLUS Care Teams [employer] Relationship Specialty [place] [id number] [address] [address] PCP - General Family Practice 12/12/21
--- OUTSIDE RECORDS SUMMARY | 2025-01-09 13:20 | XMS_ITS | Clinical Summary ---
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 Gender Identity Not on file Sexual Orientation Not on file Last Filed Vital Signs Vital Sign Reading Time Taken Comments Blood Pressure 161/80 12/12/2021 9:11 AM SONAR SUBSYSTEM EQUIPMENT OPERATOR Pulse 63 12/12/2021 9:11 AM SONAR SUBSYSTEM EQUIPMENT OPERATOR Temperature 37 C (98.6 F) 12/12/2021 9:11 AM SONAR SUBSYSTEM EQUIPMENT OPERATOR Respiratory Rate 16 12/12/2021 9:11 AM SONAR SUBSYSTEM EQUIPMENT OPERATOR Oxygen Saturation 98% 12/12/2021 9:11 AM SONAR SUBSYSTEM EQUIPMENT OPERATOR Inhaled Oxygen Concentration - - Weight 68 kg (150 lb) 12/12/2021 9:11 AM SONAR SUBSYSTEM EQUIPMENT OPERATOR Height 157.5 cm (5' 2 ) 12/12/2021 9:11 AM SONAR SUBSYSTEM EQUIPMENT OPERATOR Body Mass Index 27.44 12/12/2021 9:11 AM SONAR SUBSYSTEM EQUIPMENT OPERATOR Plan of Treatment Health Maintenance Due Date Last Done Comments Breast Cancer Screening-Mammogram 1955 Colon Cancer Screening-Colonoscopy 1955 Depression Screening 1955 Fall Risk Assessment 1955 Hepatitis C Screening 1955 Osteoporosis Screening-Bone Density Scan 1955 Hepatitis B Screening 1971 Well Visit 65+ 2018 Pneumococcal vaccine 65+ (2 of 2 - PPSV23) 05/04/2022 05/04/2021 Covid-19 Vaccine (4 - 2023-2 5 season) 2024 10/01/2021, 01/24/2021, 12/27/2020 Influenza Vaccine (Season Ended) 2025 09/18/2021, 07/23/2020, 07/14/2019, Additional history exists DTaP/Tdap/Td Vaccine (3 - Td or Tdap) 05/08/2030 05/08/2020, 10/06/2012 Zoster Vaccine Completed 06/03/2020, 10/30/2019 Insurance [facility] CHOICE PLUS [facility] HMO/PPO Address: [facility] [address] [place] [address] Care Teams Egg Buyer Relationship Specialty [place] [id number] [address] [facility] [address] [place] [address] PCP - General Family Practice 12/12/21
== END 2025-01-09 11:44 | disposition home or self-care (01) ==
PROVIDERS: Visit Provider Nurse Practitioner Women's Health
DX: Z78.0 Asymptomatic menopausal state (principal); M85.89 Other specified disorders of bone density and structure, multiple sites
CPT/HCPCS: 77080

== ENCOUNTER 2025-07-03 10:52 | Outpatient (CLI) | payer MEDICARE, OTHER, SELFPAY ==
--- NOTE | ~2025-07-03 | MM_ITS ---
EXAMINATION: MM screening sulaiman BI w jaylyn HISTORY: Screening TECHNIQUE: Craniocaudal and mediolateral oblique 3-D tomosynthesis images were obtained and synthetic 2-D images were generated. CAD analysis was submitted and interpreted. COMPARISON: Comparison to multiple prior studies sequentially, with oldest reviewed study dated 01/11/2019. BREAST PARENCHYMAL COMPOSITION: Not Dense: The breasts are almost entirely fatty. FINDINGS: There is no evidence of suspicious mass, calcification, or architectural distortion to suggest malignancy in either breast. There has been no suspicious interval change. IMPRESSION: 1. No mammographic evidence of malignancy. 2. Recommend routine screening mammography in one year. BI-RADS Category 1: Negative Reviewed, dictated and finalized at location B.
== END 2025-07-03 10:53 | disposition home or self-care (01) ==
LOC: MICIMG 10:53
PROVIDERS: Visit Provider Obstetrics & Gynecology Gynecology
DX: Z12.31 Encounter for screening mammogram for malignant neoplasm of breast (principal)
CPT/HCPCS: 77063; 77067